=== PATIENT | female | born 1965 | race Two or more races ===

== ENCOUNTER 2024-08-30 18:34 | Emergency (ER) | payer OTHER ==
[~2024-08-30] VITALS: Ht 157.5 cm; Wt 77.1 kg
[2024-08-30 18:50] VITALS: TEMP 98
[2024-08-30] MEDS ORDERED: diphenhydrAMINE HCL 50 MG/ML VIAL ONE (19:43)
[2024-08-30] MEDS ORDERED: ONDANSETRON HCL/PF 4 MG/2 ML VIAL ONE (19:43)
[2024-08-30] MEDS: IV NS 0.9% 1,000 ML BAG IV ONE (19:47)
[2024-08-30] MEDS: diphenhydrAMINE HCL 50 MG/ML VIAL IV ONE (19:47)
[2024-08-30] MEDS: ONDANSETRON HCL/PF 4 MG/2 ML VIAL IVP ONE (19:48)
[2024-08-30 20:06] LABS: BASOPHILS # (AUTO) 0.1 K/uL (0.0-0.2); BASOPHILS % (AUTO) 0.5 % (0.0-2.0); EOSINOPHILS # (AUTO) 0.2 K/uL (0.0-0.7); EOSINOPHILS % (AUTO) 1.5 % (0.0-6.0); HEMATOCRIT 41 % (33-45); HEMOGLOBIN 13.7 g/dL (11.5-14.8); LYMPHOCYTES # (AUTO) 2.5 K/uL (0.8-4.8); LYMPHOCYTES % (AUTO) 24.5 % (20.0-44.0); MEAN CORPUSCULAR HEMOGLOBIN 31 PG (26.0-33.0); MEAN CORPUSCULAR HGB CONC 34 g/dl (31.0-36.0); MEAN CORPUSCULAR VOLUME 92 fL (82-100); MONOCYTES # (AUTO) 1.1 K/uL (0.1-1.30); MONOCYTES % (AUTO) 10.3 % (2.0-12.0); NEUTROPHILS # (AUTO) 6.6 K/uL (1.8-8.9); NEUTROPHILS % (AUTO) 63.2 % (43.0-81.0); PLATELET COUNT (AUTO) 270 K/uL (150-450); RED BLOOD CELL COUNT(AUTO) 4.39 MIL/uL (4.0-5.2); WHITE BLOOD COUNT (AUTO) 10.4 K/uL (4.3-11.0)
[2024-08-30 20:08] LABS: ERYTHROCYTE SEDIMENTATION RATE 25 MM/HR (0-30)
[2024-08-30 20:16] LABS: INR 1.02 (0.91-1.10); PARTIAL THROMBOPLASTIN TIME 27.1 SEC (24.3-34.3); PROTHROMBIN TIME 10.8 SECS (9.2-11.1)
[2024-08-30 20:26] LABS: ALANINE AMINOTRANSFERASE 29 U/L (12-78); ALBUMIN 3.5 g/dL (3.4-5.0); ALKALINE PHOSPHATASE 85 U/L (46-116); ASPARTATE AMINOTRANSFERASE 15 U/L (15-37); BILIRUBIN,DIRECT 0.1 mg/dL (0.0-0.2); BILIRUBIN,TOTAL 0.4 mg/dL (0.2-1.0); CALCIUM, SERUM 8.8 mg/dL (8.5-10.1); CARBON DIOXIDE 29 mmol/L (21-32); CHLORIDE 108 mmol/L (98-107); CREATININE 0.6 mg/dL (0.6-1.3); GLUCOSE 74 mg/dL (74-106); POTASSIUM 3.9 mmol/L (3.5-5.1); SODIUM SERUM 144 mmol/L (136-145); TOTAL PROTEIN, SERUM 7.5 g/dL (6.4-8.2); UREA NITROGEN, BLOOD 12 mg/dL (7-18)
[2024-08-30] MEDS ORDERED: MECL-159 PO (21:12)
[2024-08-30] MEDS ORDERED: ONDA4TAB5 PO (21:12)
[2024-08-30 21:30] VITALS: BP 119/65; O2SAT 97
== END 2024-08-30 21:31 | disposition home or self-care (01) ==
LOC: ER 18:41
DX: R42 Dizziness and giddiness (principal); R11.2 Nausea with vomiting, unspecified; F17.200 Nicotine dependence, unspecified, uncomplicated; Z91.041 Radiographic dye allergy status
CPT/HCPCS: 99285; 96374; 70450; 71045; 96361; 96375; 93005; 85025; 80048; 80076; 85652; 36415; 84484; 85730; J1200; J2405; J7030; A4223